=== PATIENT | male | born 1960 | race Caucasian/White ===

== ENCOUNTER 2020-04-11 21:37 | Emergency (ER) | payer BC ==
[~2020-04-11] VITALS: Ht 182.9 cm; Wt 88.8 kg
[2020-04-11 21:50] VITALS: BP 163/105
[2020-04-11] MEDS ORDERED: LIDOcaine 1% W/epiNEPHrine 1:200,000 10ml vial IJ ONE (23:05)
--- NOTE | 2020-04-11 23:15 | NUR ---
lac tray and supplies ready for Kingsley VELASQUEZ. Kingsley made aware
--- NOTE | 2020-04-12 00:13 | NUR ---
wound irrigated with 1000 ml of NS. Pt tolerated well
== END 2020-04-12 00:47 | disposition home or self-care (01) ==
LOC: ER 21:38
DX: S61.210A Laceration without foreign body of right index finger without damage to nail, initial encounter (principal); W23.0XXA Caught, crushed, jammed, or pinched between moving objects, initial encounter; Y93.89 Activity, other specified; Y92.89 Other specified places as the place of occurrence of the external cause; Y99.9 Unspecified external cause status
CPT/HCPCS: 12002; 73130; 99282; 99283